=== PATIENT | female | born 1985 | race Caucasian/White ===

== ENCOUNTER → 2017-06-29 | Outpatient (CLI) | payer OTHER ==
[~2017-06-29] MED LIST: ACID CONTROL150 MG PO; ADVAIR 250/501 DISK IH; ALAVERT10 MG PO; BENADRYL25 MG PO; CARAFATE100 MG/ML PO; CLARITIN,ALAVAR10 MG PO; CLARITIN10 M3 PO; CLEOCIN300 MG PO; CLINDAMYCIN HC150 MG PO; CLINDAMYCIN HC300 MG PO; FLEXERIL10 MG PO; FLEXERIL5 MG PO; Flintstones PO; HYDROCODON-ACE1 EAC7 PO; HYDROCODON-ACE1 EAC8 PO; KENALOG,ARISTOC80 GM TP; MOBIC15 MG PO; MOTRIN800 MG PO; Micronor,Nor-Q-D,Err PO; Motrin PO; NAPROXEN500 MG PO; NORCO 5/3251 TABLET PO; PROAIR HFA8.5 GM IH; PROMETHAZINE HC25 M1 PO; TORADOL10 MG PO; ULTRACET1 TABLET PO; ZANTAC150 MG PO; ZOFRAN ODT4 MG PO; ZOFRAN4 MG PO; ~No Medications
== END | disposition home or self-care (01) ==
LOC: AMB 09:55
DX: R39.15 Urgency of urination (principal); Z87.442 Personal history of urinary calculi; Z87.440 Personal history of urinary (tract) infections; H91.90 Unspecified hearing loss, unspecified ear; Z86.61 Personal history of infections of the central nervous system
CPT/HCPCS: 87086; 99212

== ENCOUNTER → 2017-07-15 | Outpatient (CLI) | payer OTHER | END | disposition home or self-care (01) | LOC: AMB 09:00 | DX: N39.0 Urinary tract infection, site not specified (principal); B96.89 Other specified bacterial agents as the cause of diseases classified elsewhere; H91.90 Unspecified hearing loss, unspecified ear; Z87.442 Personal history of urinary calculi | CPT/HCPCS: 87077; 87086; 87186; 99211 ==

== ENCOUNTER 2018-04-23 14:48 | Emergency (ER) | payer OTHER ==
[~2018-04-23] VITALS: Ht 157.5 cm; Wt 67.7 kg
[2018-04-23 17:46] LABS: HEMATOCRIT 38.9 % (36.0-46.0); HEMOGLOBIN 13.4 G/DL (11.9-15.5); MCH 30.5 PG (29.0-34.0); MCHC 34.4 G/DL (30.0-36.0); MCV 88.4 FL (83-99); PLATELET COUNT 277 K/uL (156-360); RBC DIS.WIDTH-CV 11.9 % (11.8-14.6)
[2018-04-23 17:57] LABS: CHLORIDE 108 mEq/L (99-109); POTASSIUM 3.8 mEq/L (3.7-5.4); SODIUM 142 mEq/L (136-147)
[2018-04-23 17:59] LABS: GLUCOSE 88 mg/dL (70-99)
[2018-04-23 18:03] LABS: CREATININE 0.7 mg/dL (0.6-1.3); GFR ESTIMATE (CALCULATED) > 59 mL/min/
[2018-04-23 18:04] LABS: UREA NITROGEN (BUN) 9 mg/dL (9-23)
[2018-04-23 18:11] LABS: QUANTITATIVE HCG < 4.0 MIU/ML
[2018-04-23 19:03] VITALS: BP 138/75
== END 2018-04-23 19:09 | disposition home or self-care (01) ==
LOC: EME 14:48 → RME 14:48
PROVIDERS: Physician Assistant
DX: N64.4 Mastodynia (principal); J45.909 Unspecified asthma, uncomplicated; H91.90 Unspecified hearing loss, unspecified ear; Z86.14 Personal history of Methicillin resistant Staphylococcus aureus infection; Z88.1 Allergy status to other antibiotic agents; Z88.0 Allergy status to penicillin
CPT/HCPCS: 80048; 84702; 85027